=== PATIENT | male | born 1965 | race Caucasian/White ===

== ENCOUNTER 2021-11-04 00:58 | Day surgery (SDC) | payer OTHER, SELFPAY ==
[2021-10-17 13:22] VITALS: BMI 30.9
[2021-11-04 08:51] VITALS: BP 140/88; PULSE 58; RESP 20; TEMP 36.1; O2SAT 100; BMI 31.1
[2021-11-04] MEDS: LACTATED RINGERS 1,000 ML 150 ML IV CONT (09:01)
[2021-11-04 09:02] LABS: Glucose Point of Care 142 mg/dl (65-105)
--- NOTE | 2021-11-04 09:11 | P.PNAN_ITS ---
Anes - Initial Pre Proc Eval Procedure: Operation Date: 11/04/21 09:30 Proposed Procedures p Screening Colonoscopy - Vasu Veloz MD Date/Time: 11/04/21 09:11 Surgeon: Vasu Veloz MD Pre Op Diagnosis: neoplasm screening Patient Data Age: 56 Gender: M Height: 1.88 m Weight: 110.2 kg Last Vital Signs Temp 96.9 F L 11/04/21 08:51 Pulse 58 L 11/04/21 08:51 Resp 20 11/04/21 08:51 BP 140/88 11/04/21 08:51 Pulse Ox 100 11/04/21 08:51 O2 Del Method Room Air 11/04/21 08:51 Allergies Allergy/AdvReac Type Severity Reaction Status Date / Time No Known Allergies Allergy Verified 11/04/21 08:50 Home Medications Medication Instructions Recorded Confirmed Type losartan 25 mg tablet 25 mg PO DAILY 10/17/21 10/17/21 History metformin 500 mg tablet 500 mg PO DAILY 10/17/21 10/17/21 History Laboratory Tests 11/04/21 08:59 POC Capillary Glucose 142 mg/dl H mg/dl (65-105) Patient hx anesthesia problems: none Family hx anesthesia problems: none Results Review: All pre-operative results and documents have been reviewed as part of the pre-operative evaluation. [facility], [facility] Social History Social History Smoking status: Never smoker Alcohol intake: current Alcohol use details: a few beers on the weekends Substance use: never Substance use type: does not use Living arrangements: with family Spiritual care concerns: No Anes - Eval Final PreProcedure Day of Procedure 11/04/21 09:11 Patient weight: obese Heart: regular rate and rhythm Lungs: clear to auscultation Airway: Mallampati scale class II Neurological: alert and oriented Last oral intake: >/= 8 hours ASA classification: II Emergent: no Anesthetic plan: proceed Anesthesia type and monitoring: general GIVS and standard monitoring Results Review: All pre-operative results and documents have been reviewed as part of the pre- operative evaluation. Informed Consent: The patient's anesthetic plan and its attendant risks and benefits were discussed with the patient/family/POA. Questions were solicited and answers provided to the satisfaction of the patient/family/POA.
--- NOTE | 2021-11-04 09:14 | WPDGICN ---
Assessment and Plan Assessment and plan (1) Encounter for screening colonoscopy: Code(s): Z12.11 - Encounter for screening for malignant neoplasm of colon Status: Acute Assessment and Plan: Patient presents today for screening colonoscopy. He appears to be at average risk for colon polyps. Further recommendations will be given after endoscopy. GI Consult Note Consult date/time: 11/04/21 09:14 Reason for consult: Neoplasia screening. HPI: Everette Julio is a 56 year old male Presents for screening colonoscopy. Patient reports that his weight appetite and bowel movements are normal. He denies abdominal pain. Patient has had no bleeding. Family history is noncontributory. Patient desires neoplasia screening. Review of Systems Review of Systems: Review of systems noncontributory. PMFSH Social History Social History Smoking status: Never smoker Alcohol intake: current Alcohol use details: a few beers on the weekends Substance use: never Substance use type: does not use Living arrangements: with family Spiritual care concerns: No Meds Home Medications and Allergies Home Medications Medication Instructions Recorded Confirmed Type losartan 25 mg tablet 25 mg PO DAILY 10/17/21 10/17/21 History metformin 500 mg tablet 500 mg PO DAILY 10/17/21 10/17/21 History Allergies Allergy/AdvReac Type Severity Reaction Status Date / Time No Known Allergies Allergy Verified 11/04/21 08:50 Vital Signs Vital Signs - 24 hr 11/04/21 08:51 Temperature 96.9 F L Pulse Rate 58 L Respiratory Rate 20 Blood Pressure 140/88 Pulse Oximetry 100 Oxygen Delivery Room Air Exam Narrative: Physical exam reveals patient to be alert. Vital signs stable. HEENT exam is unremarkable. Patient is anicteric. Lungs are clear to auscultation and percussion. Heart is without murmur or extra sounds. Abdominal exam bowel sounds are present soft nontender with no organomegaly. Digital external rectal exam is normal.
[2021-11-04 09:41] VITALS: BP 111/73; PULSE 57; RESP 15; O2SAT 95
[2021-11-04 09:51] VITALS: BP 124/74; PULSE 57; RESP 19; O2SAT 97
[2021-11-04 10:01] VITALS: BP 125/79; PULSE 52; RESP 15; O2SAT 96
== END 2021-11-04 09:56 | disposition home or self-care (01) ==
PROVIDERS: PCP Internal Medicine Geriatric Medicine; Visit Provider Internal Medicine Gastroenterology
PROC: 0DJD8ZZ Inspection of Lower Intestinal Tract, Via Natural or Artificial Opening Endoscopic (ICD-10-PCS; CPT 45378; principal; 2021-11-04 09:30)
DX: Z12.11 Encounter for screening for malignant neoplasm of colon (principal); K64.8 Other hemorrhoids; Z79.84 Long term (current) use of oral hypoglycemic drugs; E66.9 Obesity, unspecified; Z68.31 Body mass index [BMI] 31.0-31.9, adult
CPT/HCPCS: 45378; 82948; J2704; J7120